=== PATIENT | female | born 1950 | race Caucasian/White ===

== ENCOUNTER → 2024-11-16 15:28 | Outpatient (CLI) | payer OTHER, SELFPAY ==
--- NOTE | 2024-11-16 15:34 | DI.MG.S_ITS ---
BILATERAL DIGITAL SCREENING MAMMOGRAM 3D/2D WITH CAD: 11/16/2024 CLINICAL: Routine screening. Family history of breast cancer. Comparison is made to exams dated: 11/07/2022 mammogram, 11/12/2023 mammogram, and 11/05/2021 mammogram - outside location. There are scattered areas of fibroglandular density (category b / 25%-50% glandular tissue). Current study was also evaluated with a Computer Aided Detection (CAD) system. No significant masses, calcifications, or other findings are seen in either breast. There has been no significant interval change. IMPRESSION: NEGATIVE There is no mammographic evidence of malignancy. A 1 year screening mammogram is recommended. Based on the Tyrer Cuzick model (a risk assessment model) the patient's lifetime risk is 3.1% and her 10 year risk is 0.0%. According to the ACR, ACS, and NCCN guidelines, an annual breast MRI exam along with mammogram is recommended if the patient's lifetime risk is 20% or greater. This exam was interpreted at Station ID: [id number]. NOTE: For mammograms, a report in lay terms will be sent to the patient. Approximately 15% of breast malignancies will not be visualized mammographically. In the management of a palpable breast mass, a negative mammogram must not discourage biopsy of a clinically suspicious lesion. Electronically Signed By: Alek [email or web address]:11/18/2024 07:43:37 letter sent: Normal Exam ACR BI-RADS Category 1: Negative
== END ==
DX: Z12.31 Encounter for screening mammogram for malignant neoplasm of breast (principal); Z80.3 Family history of malignant neoplasm of breast
CPT/HCPCS: 77063; 77067

== ENCOUNTER → 2025-01-19 12:58 | Outpatient (CLI) | payer MEDICARE, SELFPAY ==
--- NOTE | 2025-01-19 12:59 | DI.RAD.S_ITS ---
PROCEDURE: XR HIP W PEL IF DONE RT 2V INDICATIONS: Acute R hip pain no injury TECHNIQUE: AP pelvis with lateral view(s) of the right hip(s). COMPARISON: None. FINDINGS: Bones: No fractures or dislocations. Mild bilateral hip degenerative change. Pelvic ring appears intact. No suspicious bony lesions. Soft tissues: The visualized bowel gas pattern is normal. No suspicious soft tissue calcifications. IMPRESSION: No acute bony abnormality. Mild bilateral hip degenerative change. Dictated by: Sanjiv White M.D. on 01/19/2025 at 13:59 Approved by: Sanjiv White M.D. on 01/19/2025 at 13:59
--- NOTE | 2025-01-19 12:59 | DI.RAD.S_ITS ---
PROCEDURE: XR LUMBAR SPINE 2-3V INDICATIONS: Acute R lbp TECHNIQUE: 3 views of the lumbar spine were acquired. COMPARISON: None. FINDINGS: Bones: 5 [id number] vertebrae are present. There is a moderate L1 compression fracture, of uncertain chronicity. Lower lumbar degenerative change. Short lower lumbar pedicles. Suspect possible lower lumbar canal stenosis. No vertebral body compression fractures. No suspicious bony lesions. Soft tissues: Overlying bowel gas pattern is normal. No suspicious soft tissue calcifications. IMPRESSION: 1. A moderate L1 compression fractures of uncertain chronicity. 2. 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 Consider possible canal stenosis. Comment: Nonemergent MRI may be helpful both to identify whether there is canal stenosis present, as well as to identify whether there is a degree of acuity to the L1 compression fracture. Dictated by: Sanjiv Whtie M.D. on 01/19/2025 at 14:00 Approved by: Sanjiv White M.D. on 01/19/2025 at 14:01
== END ==
PROVIDERS: PCP Student in an Organized Health Care Education/Training Program; Referring Provider Student in an Organized Health Care Education/Training Program; Visit Provider Student in an Organized Health Care Education/Training Program
DX: M54.41 Lumbago with sciatica, right side (principal); M48.56XA Collapsed vertebra, not elsewhere classified, lumbar region, initial encounter for fracture; M47.816 Spondylosis without myelopathy or radiculopathy, lumbar region; M25.551 Pain in right hip
CPT/HCPCS: 72100; 73502